=== PATIENT | female | born 1980 | race Two or more races ===

== ENCOUNTER 2022-11-25 10:41 | Emergency (ER) | payer OTHER ==
[~2022-11-25] VITALS: Ht 157.5 cm; Wt 48.5 kg
[~2022-11-25 10:41] MED LIST: CEFUROXIME500 MG PO; ULTRACET PO
[2022-11-25] MEDS ORDERED: MIRALAX510 GM PO (15:24)
== END 2022-11-25 15:43 | disposition home or self-care (01) ==
LOC: ER 10:41
DX: K59.00 Constipation, unspecified (principal); R10.32 Left lower quadrant pain

== ENCOUNTER 2022-11-26 20:44 | Emergency (ER) | payer OTHER ==
[~2022-11-26] VITALS: Ht 157.5 cm; Wt 48.5 kg
[~2022-11-26 20:44] MED LIST changes: +MIRALAX510 GM PO
== END 2022-11-26 22:23 | disposition home or self-care (01) ==
LOC: ER 20:44
DX: K59.00 Constipation, unspecified (principal)